=== PATIENT | female | born 1955 | race American Indian/Alaskan Native ===

== ENCOUNTER 2020-11-27 10:01 | Day surgery (SDC) | payer MEDICAID, OTHER ==
[~2020-11-27 10:01] MED LIST: SODIUM CHLORIDE 0.9% 1000 ML 1,000 ML IV SCH
--- NOTE | 2020-11-27 10:35 | Anesthesia Consultation ---
Anesthesia Consult and Med Hx Date of service: 11/27/20 - Airway Anesthetic Teeth Evaluation: Poor ROM Head & Neck: Adequate Mental/Hyoid Distance: Adequate Mallampati Class: Class II Intubation Access Assessment: Probably Good - Pre-Operative Health Status ASA Pre-Surgery Classification: ASA2 Proposed Anesthetic Plan: MAC - Pulmonary Hx Smoking: Yes (<1 cig/day) Hx Respiratory Symptoms: No - Cardiovascular System Hx Hypertension: Yes (took antihypertensives this morning) Hx Heart Attack/AMI: No - Central Nervous System CVA: No - Endocrine Hx Renal Disease: No Hx Liver Disease: No Hx Non-Insulin Dependent Diabetes: Yes Hx Thyroid Disease: No - Other Systems Hx Cancer: Yes (hx breast ca)
--- NOTE | 2020-11-27 10:35 | Anesthesia Day of Surgery ---
Anesthesia Day of Surgery - Day of Surgery Patient Examined: Yes Patient H&P Reviewed: Yes Patient is NPO: Yes
[2020-11-27] MEDS ORDERED: propofoL 200 MG/20 ML VIAL IV ONE ×2 (12:44→12:51)
--- NOTE | 2020-11-27 13:17 | Procedure Note ---
Date of procedure: 11/27/20 Pre-op diagnosis: GERD/ Colon Polyp Screening/ P/H/O Cancer (Breast Cancer) Post-op diagnosis: other (Mild to Moderate Erosive Esophagitis/ Gastric Antral Ulcer/ Gastritis and Gastric Erosion/Left, Colon Moderate, Diverticular disease/ Mild to Moderate Internal Hemorrhoid) Procedure: EGD with biopsy/ Colonoscopy Anesthesia: [facility] [place] Surgeon: BENJAMIN KELLEY Estimated blood loss: minimal Pathology: list Specimen disposition: to lab Condition: stable Disposition: same day (Treat with PPI and encourage fiber intake. Avoid aspirin and NSAID for 5 days; otherwise resume home medication and follow up in 1 to 2 weeks ([phone]).)
--- NOTE | 2020-11-27 14:17 | Operative Report ---
PROCEDURE: Esophagogastroduodenoscopy with biopsy. INDICATIONS: This is a 65-year-old -[place] female with a prior history of breast cancer, who has been having some epigastric pain. EGD was done to assess for the source of the epigastric pain. DESCRIPTION OF PROCEDURE: The procedure was done after getting informed consent with MAC anesthesia. Instrument was passed through the hypopharynx into the esophagus, which showed mild to moderate distal erosive esophagitis. Biopsy was done from the distal esophagus. Stomach showed antral ulcers as well as gastric erosion and gastritis. Biopsy was done from the ulcer, from the gastric antrum, gastric body and angular incisura with slight bleeding from the biopsy sites. The pylorus was patent. Duodenum in the first and second portion appeared normal. ASSESSMENT: Epigastric pain, mild to moderate erosive esophagitis, gastric ulcer, gastritis. PLAN: To advise the patient to avoid aspirin and aspirin-related products for the next few days. Treat the patient with PPI. Colonoscopy is to be done as part of colon polyp screening. The patient will be asked to avoid aspirin and aspirin-related products for about 5 days, but resume other medication and follow up in the office in 1-2 weeks' time. Procedure was done in the GI lab with assistance of the GI lab team, which included RN, Hyacinth Yen; Matthew nava and with assistance of Anesthesia. JOB# [id number] EBONIE/WILLI
--- NOTE | 2020-11-27 14:25 | Operative Report ---
PROCEDURE: Colonoscopy. INDICATIONS: This is a 65-year-old -[place] female with a prior history of breast cancer, who had an EGD done prior to the colonoscopy, which showed presence of antral ulcers as well as gastric erosion and esophagitis. Colonoscopy was done to assess for any associated colon polyps. DESCRIPTION OF PROCEDURE: The procedure was done after getting informed consent with MAC anesthesia. Initial rectal exam was unremarkable. Instrument was passed through the rectum onto the cecum, which was identified with ileocecal valve and the appendiceal orifice. Visualization was fair to good. Cecum, ascending colon, and transverse colon showed normal mucosa. There was moderate diverticular disease noted in the left colon and some of which were deep, and the rectum showed mild to moderate internal hemorrhoid on the retroverted view. There was no bleeding associated with the procedure. No complications associated with the procedure. ASSESSMENT: Colon polyp screening, prior history of breast cancer. No colon polyps noted. Moderate left colon and deep diverticula noted. Diverticular disease noted in the left colon and mild to moderate internal hemorrhoid. The patient will be encouraged to take fiber supplements because of the diverticular disease and also will be treated with PPI because of the EGD findings of gastric antral ulcers and gastric erosion and gastritis and will be asked to avoid aspirin and aspirin-related products for the next few days and follow up in the office in 1-2 weeks' time. The procedure was done in the GI lab with assistance of the GI lab team, which included RN, Hyacinth Yen; Matthew nava, and with assistance of anesthesia. JOB# [id number] EBONIE/WILLI
--- NOTE | 2020-11-27 14:40 | Post Anesthesia Evaluation ---
- Post Anesthesia Evaluation Patient Participated: Yes Airway Patent: Yes Stable Respiratory Function: Yes Nausea/Vomiting: No Temp > 96.8F: Yes Pain Manageable: Yes Adequeate Hydration: Yes Anesthesia Complications: No
[2020-11-27 18:38] VITALS: BP 121/74
== END 2020-11-27 10:02 | disposition home or self-care (01) ==
LOC: GIO 10:01
DX: Z12.11 Encounter for screening for malignant neoplasm of colon (principal); R10.13 Epigastric pain; K57.30 Diverticulosis of large intestine without perforation or abscess without bleeding; K64.8 Other hemorrhoids; K20.90 Esophagitis, unspecified without bleeding; K29.70 Gastritis, unspecified, without bleeding; K31.89 Other diseases of stomach and duodenum; F17.210 Nicotine dependence, cigarettes, uncomplicated; I10 Essential (primary) hypertension; E11.9 Type 2 diabetes mellitus without complications; Z85.3 Personal history of malignant neoplasm of breast; Z79.899 Other long term (current) drug therapy; Z79.82 Long term (current) use of aspirin; Z79.84 Long term (current) use of oral hypoglycemic drugs
CPT/HCPCS: 43239; 45378; 82962; 88305; 88342; J2704; J7030